=== PATIENT | female | born 1930 | race Caucasian/White ===

== ENCOUNTER 2016-07-17 08:40 | Emergency (ER) | payer MEDICARE | END 2016-07-17 11:25 | disposition home or self-care (01) | LOC: ER 08:40 | DX: R07.81 Pleurodynia (principal); R91.1 Solitary pulmonary nodule; M17.12 Unilateral primary osteoarthritis, left knee; W01.10XA Fall on same level from slipping, tripping and stumbling with subsequent striking against unspecified object, initial encounter; Y92.019 Unspecified place in single-family (private) house as the place of occurrence of the external cause; Z88.0 Allergy status to penicillin; Z88.2 Allergy status to sulfonamides; Z88.8 Allergy status to other drugs, medicaments and biological substances; Z79.01 Long term (current) use of anticoagulants; Z79.899 Other long term (current) drug therapy; Z79.4 Long term (current) use of insulin | CPT/HCPCS: 71250; 73564; 99070; 99283; 99284-25 ==